=== PATIENT | female | born 1980 | race Caucasian/White ===

== ENCOUNTER → 2017-09-28 | Outpatient (CLI) | payer BC, OTHER ==
--- NOTE | 2017-09-28 08:56 | US ---
EXAMINATION TYPE: US venous doppler duplex LE RT DATE OF EXAM: 09/28/2017 8:34 AM COMPARISON: US CLINICAL HISTORY: M79.89 RT Leg Swelling. Pt states right leg swelling, previous DVT right leg, pt no t on blood thinners SIDE PERFORMED: Right TECHNIQUE: The lower extremity deep venous system is examined utilizing real time linear array sonog lucero with graded compression, doppler sonography and color-flow sonography. VESSELS IMAGED: External Iliac Vein (EIV) Common Femoral Vein Deep Femoral Vein Greater Saphenous Vein * Femoral Vein Popliteal Vein Small Saphenous Vein * Proximal Calf Veins (* superficial vessels) Right Leg: Nonocclusive thrombus seen Right CFV, proximal FV, and right Pop veins. There is incomple te blood flow and incomplete compression within these veins. IMPRESSION: Nonocclusive thrombus within the right common femoral vein, proximal femoral vein, and p opliteal veins. Prior thrombus was seen in these locations on the exam of 2012. Findings were tl HERNANDEZ by Dr. Jacobo at 8:54 AM on 09/28/2017.
== END | disposition home or self-care (01) ==
LOC: RADUSWWP 08:14
PROVIDERS: ATTEND Pediatrics
DX: I82.411 Acute embolism and thrombosis of right femoral vein (principal); I82.431 Acute embolism and thrombosis of right popliteal vein

== ENCOUNTER → 2018-03-29 | Outpatient (CLI) | payer BC, OTHER ==
--- NOTE | 2018-03-29 13:58 | US ---
EXAMINATION TYPE: US venous doppler duplex LE RT DATE OF EXAM: 03/29/2018 1:37 PM COMPARISON: US CLINICAL HISTORY: I82.409 DVT Right leg. SIDE PERFORMED: right TECHNIQUE: The lower extremity deep venous system is examined utilizing real time linear array sonog lucero with graded compression, doppler sonography and color-flow sonography. VESSELS IMAGED: External Iliac Vein (EIV) Common Femoral Vein Deep Femoral Vein Greater Saphenous Vein * Femoral Vein Popliteal Vein Small Saphenous Vein * Proximal Calf Veins (* superficial vessels) Patient on blood thinner since September. Hx of DVT. Patient morbidly obese. Technically difficult study. Right Leg: There appears to be some chronic changes in the femoral vein starting proximally the vein shows flow but the vein is small in caliber with thready flow in places. Vein appears compressible he re, but views are very limited due to body habitus. IMPRESSION: 1. Right lower extremity deep venous ultrasound may has some chronic thrombus within the right femora l vein. No complete occlusion is evident.
== END | disposition home or self-care (01) ==
LOC: RADUSWWP 13:09
PROVIDERS: ATTEND Pediatrics
DX: I82.401 Acute embolism and thrombosis of unspecified deep veins of right lower extremity (principal)

== ENCOUNTER 2018-09-11 14:17 | Emergency (ER) | payer BC, OTHER ==
[2018-09-11] MEDS ORDERED: ONDANSETRON 4 MG/2 ML VIAL IVP STA (14:33)
[2018-09-11] MEDS ORDERED: HYDROmorphone 0.5 MG/0.5 ML SYRINGE IVP STA (14:33)
[2018-09-11] MEDS ORDERED: SODIUM CHLORIDE 0.9% 1,000 ML IV STA (14:33)
[2018-09-11] MEDS ORDERED: FAMOTIDINE 20 MG/2 ML VIAL IV STA (14:34)
--- NOTE | 2018-09-11 14:41 | ED ---
General Adult HPI - General Chief complaint: Abdominal Pain Stated complaint: Abd pain Time Seen by Provider: 09/11/18 14:24 Source: patient, RN notes reviewed Mode of arrival: ambulatory Limitations: no limitations - History of Present Illness Initial comments: Patient 37-year-old female presented to the emergency room today with a chief complaint of abdominal pain on and off over the last week and a half. She denies anything that seems to make it better or worse. She states that she has had pain going across the abdomen greater on the right side. Patient does admit to feeling nauseated at times. Currently rates her pain 10/10. She describes it as sharp and cramping. Denies any other complaints or symptoms currently. Patient denies any recent fever, chills, shortness of breath, chest pain, back pain, vomiting, numbness or tingling, dysuria or hematuria, constipation or diarrhea, headaches or visual changes, or any other complaints. - Related Data Home Medications Medication Instructions Recorded Confirmed Atorvastatin Calcium [Lipitor] 10 mg PO DAILY 09/11/18 09/11/18 Sertraline HCl [Zoloft] 50 mg PO DAILY 09/11/18 09/11/18 Warfarin [Coumadin] 2.5 - 5 mg PO DIRECTED 09/11/18 09/11/18 Previous Rx's Medication Instructions Recorded Famotidine [Pepcid] 20 mg PO BID #20 tablet 09/11/18 Ondansetron Odt [Zofran ODT] 4 mg PO Q8HR PRN #20 tab 09/11/18 Allergies Allergy/AdvReac Type Severity Reaction Status Date / Time No Known Allergies Allergy Verified 09/11/18 14:38 Review of Systems ROS Statement: Those systems with pertinent positive or pertinent negative responses have been documented in the HPI. ROS Other: All systems not noted in ROS Statement are negative. Past Medical History Past Medical History: Deep Vein Thrombosis (DVT) History of Any Multi-Drug Resistant Organisms: None Reported Past Surgical History: Section Past Psychological History: No Psychological Hx Reported Smoking Status: Never smoker Past Alcohol Use History: None Reported Past Drug Use History: None Reported General Exam - General Exam Comments Initial Comments: General: The patient is awake and alert, in no distress, and does not appear acutely ill. Neck: The neck is supple, there is no tenderness or JVD. Cardiovascular: There is a regular rate and rhythm. No murmur, rub or gallop is appreciated. Respiratory: Lungs are clear to auscultation, respirations are non-labored, breath sounds are equal. No wheezes, stridor, rales, or rhonchi. Gastrointestinal: Abdomen soft on palpation. Patient does have some tenderness in the left and right upper quadrants along with epigastric area. No rebound, guarding or CVA tenderness. Musculoskeletal: Normal ROM, no tenderness. Strength 5/5. Sensation intact. Pulses equal bilaterally 2+. Neurological: A&O x 3. CN II-XII intact, There are no obvious motor or sensory deficits. Coordination appears grossly intact. Speech is normal. Skin: Skin is warm and dry and no rashes or lesions are noted. Psychiatric: Cooperative, appropriate mood & affect, normal judgment. Limitations: no limitations Course Vital Signs 09/11/18 14:19 Temperature 98.1 F Pulse Rate 88 Respiratory 16 Rate Blood Pressure 147/88 O2 Sat by Pulse 98 Oximetry Medical Decision Making - Medical Decision Making Patient reexamined at this time shows no signs of distress. Patient resting comfortable. Does admit that she's had abdominal pain, going over the last week and a half. Patient's ultrasound shows no evidence of gallstones. No evidence of cholecystitis. Patient ultrasound of the kidneys and bladder shows no masses or hydronephrosis. Patient's urinalysis showed a large amount of blood. Her INR was 5.4. Patient does take Coumadin because of history of blood clots. She states that she was recently changed Coumadin just 2 weeks ago. She did follow-up with the family doctor yesterday who noticed that the INR was elevated and there was blood in her urine. They advised her to skip 2 days dosing and to then cut doses in half. Patient states that she plans to do this and to continue to follow-up. At this time patient's resting comfortably. Her abdomen is soft on palpation. Patient will be discharged home to follow- up with family doctor the next 2 days. She is advised return if any symptoms increase or worsen. She'll be given prescriptions for Zofran, Pepcid for her symptoms. Advised to return if symptoms increase or worsen or for any other concerns. - Lab Data Result diagrams: 09/11/18 14:45 09/11/18 14:45 Lab Results 0109/11/18 09/11/18 Range/Units 14:45 14:45 14:45 WBC 11.3 H (3.8-10.6) k/uL RBC 4.77 (3.80-5.40) m/uL Hgb 13.1 (11.4-16.0) gm/dL Hct 41.4 (34.0-46.0) % MCV 86.8 (80.0-100.0) fL MCH 27.4 (25.0-35.0) pg MCHC 31.5 (31.0-37.0) g/dL RDW 13.4 (11.5-15.5) % Plt Count 307 (150-450) k/uL Neutrophils % 76 % Lymphocytes % 15 % Monocytes % 4 % Eosinophils % 2 % Basophils % 1 % Neutrophils # 8.6 H (1.3-7.7) k/uL Lymphocytes # 1.7 (1.0-4.8) k/uL Monocytes # 0.5 (0-1.0) k/uL Eosinophils # 0.3 (0-0.7) k/uL Basophils # 0.1 (0-0.2) k/uL PT 52.5 H (9.0-12.0) sec INR 5.4 H* (<1.2) APTT 66.1 H (22.0-30.0) sec Sodium 142 (137-145) mmol/L Potassium 4.0 (3.5-5.1) mmol/L Chloride 109 H (98-107) mmol/L Carbon Dioxide 23 (22-30) mmol/L Anion Gap 10 mmol/L BUN 18 H (7-17) mg/dL Creatinine 0.65 (0.52-1.04) mg/dL Est GFR (CKD-EPI)AfAm >90 (>60 ml/min/1.73 sqM) Est GFR (CKD-EPI)NonAf >90 (>60 ml/min/1.73 sqM) Glucose 101 H (74-99) mg/dL Calcium 9.0 (8.4-10.2) mg/dL Total Bilirubin 0.6 (0.2-1.3) mg/dL AST 14 (14-36) U/L ALT 20 (9-52) U/L Alkaline Phosphatase 94 (38-126) U/L Total Protein 6.7 (6.3-8.2) g/dL Albumin 3.9 (3.5-5.0) g/dL Amylase 33 (30-110) U/L Lipase 68 (23-300) U/L Urine Color Urine Appearance (Clear) Urine pH (5.0-8.0) Ur Specific [place] (1.001-1.035) Urine Protein (Negative) Urine Glucose (UA) (Negative) Urine Ketones (Negative) Urine Blood (Negative) Urine Nitrite (Negative) Urine Bilirubin (Negative) Urine Urobilinogen (<2.0) mg/dL Ur Leukocyte Esterase (Negative) Urine RBC (0-5) /hpf Urine WBC (0-5) /hpf Ur Squamous Epith Cells (0-4) /hpf Urine Bacteria (None) /hpf Urine Mucus (None) /hpf Urine HCG, Qual (Not Detectd) 09/11/18 09/11/18 Range/Units 14:45 14:45 WBC (3.8-10.6) k/uL RBC (3.80-5.40) m/uL Hgb (11.4-16.0) gm/dL Hct (34.0-46.0) % MCV (80.0-100.0) fL MCH (25.0-35.0) pg MCHC (31.0-37.0) g/dL RDW (11.5-15.5) % Plt Count (150-450) k/uL Neutrophils % % Lymphocytes % % Monocytes % % Eosinophils % % Basophils % % Neutrophils # (1.3-7.7) k/uL Lymphocytes # (1.0-4.8) k/uL Monocytes # (0-1.0) k/uL Eosinophils # (0-0.7) k/uL Basophils # (0-0.2) k/uL PT (9.0-12.0) sec INR (<1.2) APTT (22.0-30.0) sec Sodium (137-145) mmol/L Potassium (3.5-5.1) mmol/L Chloride (98-107) mmol/L Carbon Dioxide (22-30) mmol/L Anion Gap mmol/L BUN (7-17) mg/dL Creatinine (0.52-1.04) mg/dL Est GFR (CKD-EPI)AfAm (>60 ml/min/1.73 sqM) Est GFR (CKD-EPI)NonAf (>60 ml/min/1.73 sqM) Glucose (74-99) mg/dL Calcium (8.4-10.2) mg/dL Total Bilirubin (0.2-1.3) mg/dL AST (14-36) U/L ALT (9-52) U/L Alkaline Phosphatase (38-126) U/L Total Protein (6.3-8.2) g/dL Albumin (3.5-5.0) g/dL Amylase (30-110) U/L Lipase (23-300) U/L Urine Color Yellow Urine Appearance Clear (Clear) Urine pH 5.5 (5.0-8.0) Ur Specific [place] 1.012 (1.001-1.035) Urine Protein Trace H (Negative) Urine Glucose (UA) Negative (Negative) Urine Ketones Negative (Negative) Urine Blood Large H (Negative) Urine Nitrite Negative (Negative) Urine Bilirubin Negative (Negative) Urine Urobilinogen <2.0 (<2.0) mg/dL Ur Leukocyte Esterase Trace H (Negative) Urine RBC >182 H (0-5) /hpf Urine WBC 2 (0-5) /hpf Ur Squamous Epith Cells 1 (0-4) /hpf Urine Bacteria Rare H (None) /hpf Urine Mucus Rare H (None) /hpf Urine HCG, Qual Not Detected (Not Detectd) Disposition Clinical Impression: Abdominal pain, Elevated INR Disposition: HOME SELF-CARE Condition: Good Instructions: Abdominal Pain (ED) Additional Instructions: Please use medication as discussed. Please follow-up with family doctor in the next 2 days of symptoms have not improved. Please return to emergency room if the symptoms increase or worsen or for any other concerns. Prescriptions: Famotidine [Pepcid] 20 mg PO BID #20 tablet Ondansetron Odt [Zofran ODT] 4 mg PO Q8HR PRN #20 tab PRN Reason: Nausea Is patient prescribed a controlled substance at d/c from ED?: No Referrals: Brennan Jim MD [Primary Care Provider] - 1-2 days Time of Disposition: 17:30
[2018-09-11 15:20] LABS: Appearance,Urine Clear (Clear); Bacteria,Urine Rare /hpf; Bilirubin,Urine Negative (Negative); Blood,Urine Large (Negative); Color,Urine Yellow; Glucose,Urine (UA) Negative (Negative); Ketones,Urine Negative (Negative); Leukocyte Esterase,Urine Trace (Negative); Mucus,Urine Rare /hpf; Nitrite,Urine Negative (Negative); PH, Urine 5.5 (5.0-8.0); Protein,Urine Trace (Negative); RBC,Urine >182 /hpf (0-5); Specific Gravity,Urine 1.012 (1.001-1.035); Squamous Epithelial Cell,Urine 1 /hpf (0-4); Urobilinogen,Urine <2.0 mg/dL (<2.0); WBC,Urine 2 /hpf (0-5)
[2018-09-11 15:29] LABS: ALT 20 U/L (9-52); AST 14 U/L (14-36); Albumin 3.9 g/dL (3.5-5.0); Alkaline Phosphatase 94 U/L (38-126); Amylase 33 U/L (30-110); Anion Gap 10 mmol/L; Blood Urea Nitrogen 18 mg/dL (7-17); Carbon Dioxide 23 mmol/L (22-30); Chloride 109 mmol/L (98-107); Glucose 101 mg/dL (74-99); Lipase 68 U/L (23-300); Sodium 142 mmol/L (137-145); Total Bilirubin 0.6 mg/dL (0.2-1.3); Total Protein 6.7 g/dL (6.3-8.2)
[2018-09-11 15:33] LABS: Prothrombin Time 52.5 sec (9.0-12.0)
[2018-09-11 15:45] LABS: INR 5.4 (<1.2)
[2018-09-11 15:46] LABS: Partial Thromboplastin Time 66.1 sec (22.0-30.0)
--- NOTE | 2018-09-11 15:55 | US ---
EXAMINATION TYPE: US abdomen limited DATE OF EXAM: 09/11/2018 COMPARISON: NONE CLINICAL HISTORY: Pain. RUQ pain EXAM MEASUREMENTS: Liver Length: 21.6 cm Gallbladder Wall: 0.3 cm CBD: 0.6 cm CHD: 0.4 cm Right Kidney: 10.5 x 5.0 x 4.5 cm Pancreas: Distal body and Tail obscured by overlying bowel gas. Appears echogenic in appearance. Liver: enlarged in size. No focal masses or lesions seen. Gallbladder: wnl Evidence for sonographic Corral's sign: neg CBD: wnl CHD: wnl Right Kidney: wnl IMPRESSION: 1. No acute ultrasound abnormality.
[2018-09-11 16:20] LABS: Basophils # (A) 0.1 k/uL (0-0.2); Basophils % (A) 1 %; Eosinophils # (A) 0.3 k/uL (0-0.7); Eosinophils % (A) 2 %; HCT 41.4 % (34.0-46.0); HGB 13.1 gm/dL (11.4-16.0); Lymphocytes # (A) 1.7 k/uL (1.0-4.8); Lymphocytes % (A) 15 %; MCH 27.4 pg (25.0-35.0); MCHC 31.5 g/dL (31.0-37.0); MCV 86.8 fL (80.0-100.0); Mean Platelet Volume 6.2; Monocytes # (A) 0.5 k/uL (0-1.0); Monocytes % (A) 4 %; Neutrophils # (A) 8.6 k/uL (1.3-7.7); Neutrophils % (A) 76 %; Platelet Count 307 k/uL (150-450); RBC 4.77 m/uL (3.80-5.40); RDW 13.4 % (11.5-15.5); WBC 11.3 k/uL (3.8-10.6)
--- NOTE | 2018-09-11 17:11 | US ---
EXAMINATION TYPE: US kidneys/renal and bladder DATE OF EXAM: 09/11/2018 COMPARISON: US 2019 CLINICAL HISTORY: Pain. Abdomen and right flank pain, hematuria EXAM MEASUREMENTS: Right Kidney: 11.4 x 5.1 x 4.7 cm Left Kidney: 12.0 x 5.5 x 4.6 cm Difficult and limited study due to patient body habitus Right Kidney: no hydronephrosis or masses seen Left Kidney: no hydronephrosis or masses seen Bladder: not fully distended There is no evidence for hydronephrosis at this point in time. No nephrolithiasis is seen. No maria elena s are identified. The urinary bladder is anechoic. IMPRESSION: Normal exam. No evidence of renal mass or obstruction. Urinary bladder was almost empty during the ex am.
[2018-09-11 17:55] VITALS: BP 101/62; PULSE 77; RESP 18; TEMP 98.4
== END 2018-09-11 17:55 | disposition home or self-care (01) ==
LOC: EC 14:17
DX: R10.9 Unspecified abdominal pain (principal); R79.1 Abnormal coagulation profile; R11.0 Nausea; R31.9 Hematuria, unspecified; Z32.02 Encounter for pregnancy test, result negative; Z86.718 Personal history of other venous thrombosis and embolism; Z79.01 Long term (current) use of anticoagulants; Z79.899 Other long term (current) drug therapy
CPT/HCPCS: 36415; 80053; 82150; 83690; 85025; 85610; 85730; 81001; 81025; 76705; 76770; 99284; 96374; 96375 ×2; 96361; J2405; J1170

== ENCOUNTER → 2019-07-15 | Outpatient (CLI) | payer BC ==
--- NOTE | 2019-07-17 07:13 | ECHOF ---
Referral Reason:Edema R60.9 MEASUREMENTS -------- HEIGHT: 167.6 cm WEIGHT: 138.3 kg BP: 128/71 RVIDd: 3.3 cm (< 3.3) IVSd: 1.1 cm (0.6 - 1.1) LVIDd: 4.7 cm (3.9 - 5.3) LVPWd: 1.1 cm (0.6 - 1.1) IVSs: 1.6 cm LVIDs: 2.9 cm LVPWs: 1.8 cm LA Diam: 3.2 cm (2.7 - 3.8) LAESV Index (A-L): 18.22 ml/m Ao Diam: 3.1 cm (2.0 - 3.7) AV Cusp: 2.3 cm (1.5 - 2.6) MV EXCURSION: 14.230 mm (> 18.000) MV EF SLOPE: 100 mm/s (70 - 150) EPSS: 1.3 cm MV E Kenny: 0.91 m/s MV DecT: 190 ms MV A Kenny: 0.62 m/s MV E/A Ratio: 1.48 RAP: 5.00 mmHg RVSP: 27.00 mmHg TAPSE: 24.73 mm FINDINGS -------- This was a technically adequate study. The left ventricular size is normal. There is borderline concentric left ventricular hypertrophy. Overall left ventricular systolic function is normal with, an EF between 60 - 65 %. The right ventricle is mildly enlarged. Normal LA size by volume 22+/-6 ml/m2. The right atrium is normal in size. Interatrial and interventricular septum intact. The aortic valve is trileaflet and appears structurally normal. The mitral valve is normal. Mild tricuspid regurgitation present. Right ventricular systolic pressure is normal at < 35 mmHg. Trace/mild (physiologic) pulmonic regurgitation. The aortic root size is normal. Normal inferior vena cava with normal inspiratory collapse consistent with estimated right atrial pre ssure of 5 mmHg. There is no pericardial effusion. CONCLUSIONS -------- 1. This was a technically adequate study. 2. The left ventricular size is normal. 3. There is borderline concentric left ventricular hypertrophy. 4. Overall left ventricular systolic function is normal with, an EF between 60 - 65 %. 5. The right ventricle is mildly enlarged. 6. Normal LA size by volume 22+/-6 ml/m2. 7. The right atrium is normal in size. 8. Interatrial and interventricular septum intact. 9. The aortic valve is trileaflet and appears structurally normal. 10. The mitral valve is normal. 11. Mild tricuspid regurgitation present. 12. Right ventricular systolic pressure is normal at < 35 mmHg. 13. Trace/mild (physiologic) pulmonic regurgitation. 14. The aortic root size is normal. 15. Normal inferior vena cava with normal inspiratory collapse consistent with estimated right atrial pressure of 5 mmHg. 16. There is no pericardial effusion. FIRE SPRINKLER DESIGNER: Kandi Hill RDCS
== END | disposition home or self-care (01) ==
LOC: RADECHMAIN 13:00
PROVIDERS: ATTEND Pediatrics
DX: I07.1 Rheumatic tricuspid insufficiency (principal); I37.1 Nonrheumatic pulmonary valve insufficiency
CPT/HCPCS: 93306

== ENCOUNTER → 2020-01-28 | Outpatient (CLI) | payer BC ==
[2020-01-28 13:07] LABS: INR 1.2 (<1.2); Prothrombin Time 11.8 sec (9.0-12.0)
== END | disposition home or self-care (01) ==
LOC: LABWHC1 12:38
PROVIDERS: ATTEND Dentist Oral and Maxillofacial Surgery
DX: D68.9 Coagulation defect, unspecified (principal)
CPT/HCPCS: 36415; 85610

== ENCOUNTER → 2020-05-07 | Outpatient (CLI) | payer BC ==
--- NOTE | 2020-05-07 10:37 | US ---
EXAMINATION TYPE: US venous doppler duplex LE DATE OF EXAM: 05/07/2020 10:23 AM COMPARISON: CLINICAL HISTORY: I82.409 Acute embolism and thrombosis. 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 On coumadin . No redness at this time. SIDE PERFORMED: Bilateral TECHNIQUE: The lower extremity deep venous system is examined utilizing real time linear array sonog lucero with graded compression, doppler sonography and color-flow sonography. VESSELS IMAGED: External Iliac Vein (EIV) Common Femoral Vein Deep Femoral Vein Greater Saphenous Vein * Femoral Vein Popliteal Vein Small Saphenous Vein * Proximal Calf Veins (* superficial vessels) Grayscale, color Doppler, spectral Doppler imaging performed Right Leg: Positive for DVT. Internal echoes visualized from CFV to distal popliteal vein. Florina sions deferred due to visual echoes. Left Leg: Negative for DVT Partial thrombosis suspected on previous exam within the right lower extremity. IMPRESSION: Deep venous thrombosis right lower extremity. Results relayed to the referring clinician' s office.
== END | disposition home or self-care (01) ==
LOC: RADUSWWP 09:52
PROVIDERS: ATTEND Pediatrics
DX: I82.401 Acute embolism and thrombosis of unspecified deep veins of right lower extremity (principal)
CPT/HCPCS: 93970

== ENCOUNTER → 2021-07-04 | Outpatient (CLI) | payer BC ==
--- NOTE | 2021-07-05 08:48 | MM ---
Reason for exam: screening (asymptomatic). Baseline mammogram. History: Taking hormonal contraceptives for 5 years. Physical Findings: Nurse did not find any significant physical abnormalities on exam. MG 3D Screening Mammo W/Cad Bilateral CC and MLO view(s) were taken. There are scattered fibroglandular densities. Finding #1: There is a 8 mm microlobulated oval mass located 7-8 cm from the nipple in the slight lower outer quadrant, middle position of the right breast. Finding #2: There are typically benign round calcifications in both breasts. ASSESSMENT: Incomplete: need additional imaging evaluation, BI-RAD 0 RECOMMENDATION: Ultrasound of the right breast. [facility] will attempt to contact patient to return for ultrasound.
== END | disposition home or self-care (01) ==
LOC: RADMAMWWP 08:02
PROVIDERS: ATTEND Pediatrics
DX: Z12.31 Encounter for screening mammogram for malignant neoplasm of breast (principal)
CPT/HCPCS: 77063; 77067

== ENCOUNTER → 2021-07-14 | Outpatient (CLI) | payer BC ==
--- NOTE | 2021-07-15 08:58 | USB ---
Reason for exam: additional evaluation requested from abnormal screening. History: Taking hormonal contraceptives for 5 years. Physical Findings: Nurse did not find any significant physical abnormalities on exam. US Breast Workup Limited RT Technologist: Dorothy Lobo Right limited breast ultrasound including focal area of concern, retroareolar and axilla demonstrates a 0.5 x 0.5 x 0.3cm vascular lesion at 9 o'clock, probable blood vessel. These results were verbally communicated with the patient and result sheet given to the patient on 07/14/21. ASSESSMENT: Benign, BI-RAD 2 RECOMMENDATION: Return to routine screening mammogram schedule for both breasts.
== END ==
LOC: RADUSWWP 15:06
PROVIDERS: ATTEND Pediatrics
DX: R92.8 Other abnormal and inconclusive findings on diagnostic imaging of breast (principal)

== ENCOUNTER → 2022-07-07 | Outpatient (CLI) | payer BC ==
--- NOTE | 2022-07-10 19:36 | MM ---
Reason for Exam: Screening (asymptomatic). Last screening mammogram was performed 12 month(s) ago. Patient History: Menarche at age 10. First Full-Term at age 26. Currently using Hormonal Contraceptives, for 5 years. Risk Values: Leah 5 year model risk: 0.8%. NCI Lifetime model risk: 10.8%. Prior Study Comparison: 07/04/2021 Bilateral Screening Mammogram, [facility]. Tissue Density: There are scattered fibroglandular densities. Findings: Analyzed By CAD. Chronic nodularity on both sides. There is no suspicious group of microcalcifications or new suspicious mass in either breast. Overall Assessment: Benign, BI-RAD 2 Management: Screening Mammogram of both breasts in 1 year. 1. Patient should continue monthly self breast exams. 2. A clinical breast exam by your physician is recommended on an annual basis. 3. This exam should not preclude additional follow-up of suspicious palpable abnormalities. Electronically signed and approved by: Jonnathan Barr M.D. Radiologist
== END | disposition home or self-care (01) ==
LOC: RADMAMWWP 16:00
PROVIDERS: ATTEND Pediatrics
DX: Z12.31 Encounter for screening mammogram for malignant neoplasm of breast (principal)
CPT/HCPCS: 77063; 77067

== ENCOUNTER → 2023-03-14 | Outpatient (CLI) | payer BC, OTHER ==
--- NOTE | 2023-03-14 17:11 | XR ---
EXAMINATION TYPE: XR Hip Complete LT DATE OF EXAM: 03/14/2023 COMPARISON: None HISTORY: Pain TECHNIQUE: 2 view left hip FINDINGS: Femoral head articulates with the acetabulum. Mild joint space narrowing is present. No acu te fracture or dislocation is evident. Follow-up can be performed as clinically indicated. IMPRESSION: 1. No acute osseous abnormality left hip. 2. Minimal degenerative change with joint space.
--- NOTE | 2023-03-14 17:14 | XR ---
EXAMINATION TYPE: XR lumbosacral spine min 4V DATE OF EXAM: 03/14/2023 COMPARISON: None HISTORY: Pain down low back left leg TECHNIQUE: 5 view lumbar spine FINDINGS: There are 5 lumbar vertebral bodies. Pedicles are intact. No spondylolytic defects are evid ent. There is narrowing of the L5-S1 disc height. Remaining disc heights are preserved. MRI can be pe rformed as clinically indicated. IMPRESSION: 1. Mild to moderate degenerative disc changes L5-S1
== END | disposition home or self-care (01) ==
LOC: RADXRMAIN 13:30
PROVIDERS: ATTEND Pediatrics
DX: M16.12 Unilateral primary osteoarthritis, left hip (principal); M51.37 Other intervertebral disc degeneration, lumbosacral region
CPT/HCPCS: 72110; 73502

== ENCOUNTER → 2023-04-03 | Outpatient (CLI) | payer BC, OTHER ==
--- NOTE | 2023-04-04 00:09 | MR ---
EXAMINATION TYPE: MR brain wo con DATE OF EXAM: 04/03/2023 7:29 AM COMPARISON: None. CLINICAL INDICATION:Female, 42 years old with history of R51.9 HEADACHE, UNSPECIFIED; Headaches, dizz iness. TECHNIQUE: Multi planar, multi sequence imaging was performed through the brain including: T1, T2, In version recovery, Diffusion weighted imaging, and gradient echo imaging. No gadolinium was given. FINDINGS: The mueller-white junctions, ventricular system, and cisterns appear unremarkable. No focus of high T2 signal intensity are seen within the posterior right frontal lobe. Midline structures show no abnorma lity. Diffusion-weighted imaging shows no evidence of restricted diffusion. The susceptibility weight ed images do not reveal any evidence for micro-hemorrhage. The bone marrow signal is within normal limits. Paranasal sinuses and mastoid air cells: No significant paranasal sinus disease. Visualized orbits: Orbital contents are intact. IMPRESSION: 1. No evidence of intracranial mass or acute/subacute infarct. 2. Single focus of nonspecific white matter changes in the right posterior frontal lobe.
== END | disposition home or self-care (01) ==
LOC: RADMRIMAIN 06:57
PROVIDERS: ATTEND Pediatrics
DX: R90.82 White matter disease, unspecified (principal); R51.9 Headache, unspecified
CPT/HCPCS: 70551

== ENCOUNTER → 2023-07-12 | Outpatient (CLI) | payer BC ==
--- NOTE | 2023-07-13 09:38 | MM ---
Reason for Exam: Screening (asymptomatic). Last screening mammogram was performed 12 month(s) ago. Patient History: Menarche at age 10. First Full-Term at age 26. Currently using Hormonal Contraceptives, for 5 years. Risk Values: Leah 5 year model risk: 0.9%. NCI Lifetime model risk: 10.7%. Prior Study Comparison: 07/04/2021 Bilateral Screening Mammogram, [facility]. 07/07/2022 Bilateral MG 3D screening mammo w/cad, [facility]. Tissue Density: The breast tissue is almost entirely fat. Findings: Analyzed By CAD. There is no suspicious group of microcalcifications or new suspicious mass. Benign-appearing calcifications bilaterally. Overall Assessment: Benign, BI-RAD 2 Management: Screening Mammogram of both breasts in [address] [facility] will attempt to contact patient to return for supplemental views and ultrasound if indicated. Patient should continue monthly self-breast exams. A clinical breast exam by your physician is recommended on an annual basis. This exam should not preclude additional follow-up of suspicious palpable abnormalities. Note on Leah scores and lifetime risk: 1. A Leah score greater than 3% is considered moderate risk. If this is the case, consider specialist referral to assess eligibility for a risk reducing agent. 2. If overall lifetime risk for the development of breast cancer is 20% or higher, the patient may qualify for future screening with alternating mammogram and breast MRI. Electronically signed and approved by: Bairon Petty DO
== END | disposition home or self-care (01) ==
LOC: RADMAMWWP 09:48
PROVIDERS: ATTEND Pediatrics
DX: Z12.31 Encounter for screening mammogram for malignant neoplasm of breast (principal)
CPT/HCPCS: 77063; 77067

== ENCOUNTER → 2024-02-06 | Outpatient (CLI) | payer OTHER ==
--- NOTE | 2024-02-06 14:08 | XR ---
EXAMINATION TYPE: XR knee complete RT DATE OF EXAM: 02/06/2024 CLINICAL HISTORY: pain TECHNIQUE: Three views of the right knee are obtained. COMPARISON: None. FINDINGS: There is no acute fracture/dislocation. The tri-compartment joint spaces appear within no rmal limits. The overlying soft tissue appears unremarkable. IMPRESSION: There is no acute fracture or dislocation.ICD 10 NO FRACTURE, INITIAL EVALUATION
== END | disposition home or self-care (01) ==
LOC: RADXRMAIN 13:44
PROVIDERS: ATTEND Pediatrics
DX: M25.561 Pain in right knee (principal); E66.01 Morbid (severe) obesity due to excess calories

== ENCOUNTER → 2024-07-14 | Outpatient (CLI) | payer OTHER ==
--- NOTE | 2024-07-15 10:11 | MM ---
Reason for Exam: Screening (asymptomatic). Last screening mammogram was performed 12 month(s) ago. Patient History: Menarche at age 10. First Full-Term at age 26. Currently using Hormonal Contraceptives, for 5 years. Last menstrual period: 01/08/2022 Risk Values: Leah 5 year model risk: 0.9%. NCI Lifetime model risk: 10.6%. Prior Study Comparison: 07/04/2021 Bilateral Screening Mammogram, [facility]. 07/07/2022 Bilateral MG 3D screening mammo w/cad, [facility]. 07/12/2023 Bilateral MG 3D screening mammo w/cad, [facility]. Tissue Density: There are scattered areas of fibroglandular density. Findings: Analyzed By CAD. There is no suspicious group of microcalcifications or new suspicious mass in either breast. Overall Assessment: Benign, BI-RAD 2 Management: Screening Mammogram of both breasts in 1 year. . Patient should continue monthly self-breast exams. A clinical breast exam by your physician is recommended on an annual basis. This exam should not preclude additional follow-up of suspicious palpable abnormalities. Note on Leah scores and lifetime risk: 1. A Leah score greater than 3% is considered moderate risk. If this is the case, consider specialist referral to assess eligibility for a risk reducing agent. 2. If overall lifetime risk for the development of breast cancer is 20% or higher, the patient may qualify for future screening with alternating mammogram and breast MRI. [facility], , 07/15/2024 10:08 AM. Electronically signed and approved by: uJan Nelson M.D. Radiologis
== END | disposition home or self-care (01) ==
LOC: RADMAMWWP 11:39
PROVIDERS: ATTEND Pediatrics
DX: Z12.31 Encounter for screening mammogram for malignant neoplasm of breast (principal); R92.323 Mammographic fibroglandular density, bilateral breasts
CPT/HCPCS: 77063; 77067

== ENCOUNTER 2024-10-10 13:08 | Day surgery (SDC) | payer OTHER ==
[2024-10-10 13:47] VITALS: RESP 16; TEMP 98.5
[2024-10-10] MEDS: LACTATED RINGERS 1,000 ML IV SCH (13:53)
[2024-10-10] MEDS: IV FLUID CONTINUATION 1,000 ML IV ONE ×2 (13:53→14:43)
[2024-10-10] MEDS ORDERED: PROPOFOL 10 MG/ML 20 ML VIAL IV ONE (14:24)
--- NOTE | 2024-10-10 14:39 | P.PCN ---
Date of Procedure: 10/10/24 Procedure(s) Performed: BRIEF HISTORY: Patient is a 43-year-old pleasant white female scheduled for an elective colonoscopy as a part of screening for colon cancer. PROCEDURE PERFORMED: Colonoscopy with biopsy and snare polypectomy. PREOPERATIVE DIAGNOSIS: Screening screening for colon cancer. IV sedation per Anesthesia. PROCEDURE: After informed consent was obtained, the patient, was brought into the endoscopy unit. IV sedation was administered by Anesthesia under continuous monitoring. Digital rectal examination was normal. Initially the Olympus CF-160 flexible video colonoscope was then inserted in the rectum, gradually advanced into the cecum without any difficulty. Careful examination was performed as the scope was gradually being withdrawn. Ileocecal valve and the appendiceal orifice were visualized and appeared normal. Prep was excellent. Mucosa of the cecum, normal. In the ascending colon there was a 3 mm polyp that was removed by cold biopsy. In the transverse colon there was another 3 mm polyp that was removed by cold biopsy. Rest of the ascending colon, transverse colon, descending colon, normal. The sigmoid colon there was a 7 mm polyp removed by cold snare polypectomy. In the rectosigmoid colon there was a 1.2 cm pedunculated polyp removed by hot snare polypectomy. Rest of the sigmoid colon, and rectum appeared normal. Retroflexion was performed in the rectum and no lesions were seen. The patient tolerated the procedure well. IMPRESSION: 3 mm ascending colon polyp status post cold biopsy 3 mm transverse colon polyp status post cold biopsy 7 mm sigmoid colon polyp status post snare polypectomy 1.2 cm rectosigmoid polyp status post hot snare polypectomy RECOMMENDATIONS: Findings of this examination were discussed with the patient as well as her family. She was advised to follow-up with the biopsy results. If the biopsy reveals adenoma she can have repeat colonoscopy in 3 years..
[2024-10-10 15:14] VITALS: BP 149/80; PULSE 78
== END 2024-10-10 15:18 | disposition home or self-care (01) ==
LOC: ORWHC2ENDO 13:08
PROVIDERS: ATTEND Internal Medicine Gastroenterology
DX: Z12.11 Encounter for screening for malignant neoplasm of colon (principal); D12.2 Benign neoplasm of ascending colon; D12.5 Benign neoplasm of sigmoid colon; D12.7 Benign neoplasm of rectosigmoid junction; I82.409 Acute embolism and thrombosis of unspecified deep veins of unspecified lower extremity; Z79.02 Long term (current) use of antithrombotics/antiplatelets; Z79.899 Other long term (current) drug therapy
CPT/HCPCS: 81025; 88305; 84703; 45380; 45385; J2704